=== PATIENT | female | born 1960 | race Caucasian/White ===

== ENCOUNTER → 2024-12-26 11:37 | Outpatient (BNVA) | payer OTHER, SELFPAY | PROVIDERS: Visit Provider Physician Assistant Medical | DX: S80.12XA Contusion of left lower leg, initial encounter (principal); S83.91XA Sprain of unspecified site of right knee, initial encounter; S43.491A Other sprain of right shoulder joint, initial encounter; W01.190A Fall on same level from slipping, tripping and stumbling with subsequent striking against furniture, initial encounter | CPT/HCPCS: 73030; 73564; 99204 ==

== ENCOUNTER → 2024-12-28 10:23 | Outpatient (BNVA) | payer OTHER, SELFPAY | PROVIDERS: Visit Provider Physician Assistant Medical | DX: S80.12XA Contusion of left lower leg, initial encounter (principal); S83.91XA Sprain of unspecified site of right knee, initial encounter; S43.491A Other sprain of right shoulder joint, initial encounter; W01.190A Fall on same level from slipping, tripping and stumbling with subsequent striking against furniture, initial encounter | CPT/HCPCS: 99213 ==

== ENCOUNTER 2025-01-01 16:48 | Emergency (ER) | payer OTHER, SELFPAY ==
--- NOTE | ~2025-01-01 | XR_ITS ---
CLINICAL HISTORY: trauma 2 view left tibia-fibula Comparison: None Findings No fractures or dislocations. No ankle effusion. Mild arthritic change of the ankle and the lateral knee compartment. IMPRESSION: 1. No acute bony abnormality. This document has been electronically signed by: Jerrica Tena MD on 01/01/2025 17:42:19
--- NOTE | ~2025-01-01 | US_ITS ---
CLINICAL HISTORY: pain, swelling Venous duplex ultrasound left lower extremity Comparison: None Findings: The visualized deep veins are fully compressible with normal Doppler color flow and spectral tracings. No popliteal cyst. IMPRESSION: 1. Negative for left lower extremity deep vein thrombosis. This document has been electronically signed by: Jerrica Tena MD on 01/01/2025 17:40:57
[2025-01-01 16:55] VITALS: BP 161/92; PULSE 104; RESP 18; TEMP 36.4; O2SAT 95; BMI 25.2
--- NOTE | 2025-01-01 16:56 | ED.GENADULT ---
HPI - General Adult General Chief complaint: Extremity Injury, Lower Stated complaint: Fall at work Time Seen by Provider: 01/01/25 17:51 Source: patient Mode of arrival: ambulatory Limitations: no limitations History of Present Illness ED Provider: Yanet Lovell PA-C HPI narrative: 64-year-old female presents to the ER for evaluation of left lower leg bruising and pain for the last 6 days after she fell at work and hit it against a book shelf. She reports. Significantly bruised with a central area of redness and firmness. She denies any pain or swelling of her ankle. She has been using ice and elevating her leg. She has been out of work. 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 he is not on any anticoagulation or antiplatelet medications. She denies any numbness or tingling in the leg. MD complaint: Left lower leg bruising and pain Onset (ago): day(s) (6) Location: left and lower extremity Radiation: non-radiation Severity: moderate Quality: aching Pain Consistency: intermittent Relieving factors: cold therapy and immobilization Exacerbating factors: movement and other ( palpation and weight-bearing) Associated symptoms: denies other symptoms Treatments prior to arrival: none Related Data Previous Rx's ?Medication ?Instructions ?Recorded cyclobenzaprine 5 mg tablet 5 mg PO BEDTIME PRN muscle spasm 12/26/24 #20 tabs lorazepam 0.5 mg tablet 0.5 mg PO DAILY PRN procedural 12/28/24 anxiety #3 tabs Allergies Allergy/AdvReac Type Severity Reaction Status Date / Time latex Allergy Intermediate Rash Verified 01/01/25 16:56 Review of Systems Review of Systems: Yes all other systems are reviewed and are negative Physical Exam ED Vital Signs: Vital Signs - 24 hr 01/01/25 16:55 01/01/25 17:26 Temperature 97.5 F 98.3 F Pulse Rate 104 H 82 Respiratory Rate 18 18 Blood Pressure 161/92 H 146/67 H Pulse Oximetry 95 96 Oxygen Delivery Method Room Air Room Air BMI result Body Mass Index 25.2 Appearance: Alert. Oriented X3. No acute distress. HEENT: normal inspection CVS: Normal heart rate and rhythm. Pulses normal. Respiratory: No respiratory distress. Skin: Skin warm and dry. Normal skin color. Normal skin turgor. No rashes. Extremities: left medial lower leg with moderate dark purple ecchymotic area with central erythema and firmness with associated tenderness. Compartments are soft and compressible. Neurovascularly intact distally with 2+ DP and PT pulses. Neuro: Oriented X 3. No motor deficit. No sensory deficit. Course Course Course Narrative: RME, this is a rapid medical exam performed by Marshall Delgado please refer to primary provider for complete H&P- 64 year old female presents for evaluation of left calf pain, bruising, and swelling. She reports falling one week ago and has a large hemaotma to the left calf. She is not on any anti-platelets or anticoagulation. Plan for x-rays and ultrasound. She is able to plantarflex and dorsiflex the left foot without difficulty. Medical Decision Making Medical Decision Making MDM Narrative: 64-year-old woman presenting to the ER for evaluation of left lower leg ecchymosis after falling 6 days ago. Not on anticoagulation. Compartments are soft without any evidence of compartment syndrome on exam. The area seems to be slowly healing with centralized area of more firm tissue in the middle. This is consistent with a resolving hematoma. No evidence of infection at this time. Placed in Moe wrap for compression and support. Supportive care discussed with patient along with return precautions and thinks monitor for at home. Stable for discharge Differential Diagnosis Differential Diagnoses: The differential diagnosis associated with the presentation includes Compartment syndrome, DVT, hematoma, ankle fracture Independent Interpretation I performed an independent interpretation of an: Plain X-Ray and Ultrasound Interpretation: ultrasound with the evidence of DVT X-ray without any distal fibular fracture Radiology Impression Discussion of test interpretation with radiology: I have reviewed the radiologist's reading. Tests considered The following testing was considered but not selected: CT scan of the lower leg considered however low suspicion for a deep abscess Prescription Management I considered prescription management with: Pain Medication and Antibiotic Critical Care Time Critical Care Time Critical Care Time: No Discharge Plan Discharge Clinical Impression: Hematoma of left lower leg Patient Disposition: Home, Self-Care Instructions: Hematoma (ED) Additional Instructions: Your ultrasound was negative for DVT Your x-ray was normal Rest your leg and elevate your it when possible. Recommend MOE wrap for support and compression. Use ice several times per day. Take Motrin and/or Tylenol as needed for pain. Follow up with your doctor as needed. Prescriptions: No Action lorazepam 0.5 mg tablet 0.5 mg PO DAILY MDD 1.5 mg PRN (Reason: procedural anxiety) Qty: 3 0RF Rx Instructions: take 1-2 tablets a half hour before the testing, may take another tablets if needed due to incomplete response after 30-[address] or do safety sensitive duties after taking this medication. cyclobenzaprine 5 mg tablet 5 mg PO BEDTIME PRN (Reason: muscle spasm) Qty: 20 0RF Rx Instructions: Can take a 2nd dose up to 10 mg Referrals: David Chairez MD [Primary Care Provider] - Print Language: Amharic
[2025-01-01 17:26] VITALS: BP 146/67; PULSE 82; RESP 18; TEMP 36.8; O2SAT 96
--- NOTE | 2025-01-01 17:33 | PC.NURSE ---
Patient is a 64 year old female presents for evaluation of sudden onset left calf pain, bruising, and swelling. She reports falling one week ago and has a large hematoma to the left calf. U/S completed. Alert and oriented. Lungs clear bilat. Respirations even and non-labored. Abdomen soft, non-tender with positive bowel sounds. Bruising and swelling noted to medial aspect of her ankle/LE. Good pedal pulse with positive CSM.
--- OUTSIDE RECORDS SUMMARY | 2025-01-01 17:54 | XMS_ITS | Encounter Summary ---
Author Organization [facility] and [facility] Address [address] [place] [phone] Care Team Providers Care Chief Relay Tester Name Role Phone David Chairez MD Primary Care Provider Unavaila ble Encounter Details Date Type Department Care Team (Late st Contact Info) Description 06/09/2019 Scanned Document [facility] Health Information Management [address] [place] [phone] External, Provider Social History Tobacco Use Types Packs/Day Years Used Date Smoking Tobacco: Every Day Smokeless Tobacco: Never Comments Unknown Sex and Gender Information Value Date Recorded Sex Assigned at Not on file Legal Sex Female 11:16 AM EDT Gender Identity Female 05/13/2019 12:15 PM EDT Sexual Orientation Not on file documented as of this encounter Plan of Treatment Not on file documented as of this encounter Visit Diagnoses Not on filedocumented in this encounter Care Teams Chief Relay Tester Relationship Specialty Start Date End Date David Chairez MD PCP - General Internal Medicine 05/13/19 documented as of this encounter
--- OUTSIDE RECORDS SUMMARY | 2025-01-01 17:54 | XMS_ITS | Clinical Summary ---
Author Organization [address] Address [address] [place] [phone] Phone Care Team Providers Care Chief Librarian Extension Department Name Role Phone David Chairez MD Primary Care Provider Unavaila ble Allergies Active Allergy Reactions Criticality Noted Date Comments Onion 05/13/2019 Only to Raw onion. Patient reports sores in mouth Medications albuterol (PROVENTIL HFA;VENTOLIN HFA;PROAIR HFA) 90 mcg/actuation HFA aerosol inhaler Inhale 2 puffs into the lungs every 6 (six) hours as needed for Wheezing. Active hydroCHLOROthiaz damion (MICROZIDE) 12.5 mg capsule Take 12.5 mg by mouth daily. Active traZODone (DESYREL) 150 MG tablet Take 150 mg by mouth nightly. Active multivitamin (THERAGRAN) tablet Take 1 tablet by mouth daily. Active esomeprazole (NEXIUM) 20 MG capsule Take 40 mg by mouth daily before breakfast. Active calcium carbonate (CALTRATE 600) 1500 mg (600 mg calcium) tablet Take 1 tablet by mouth daily. Active glucosamine HCl 1,500 mg Tab Take 1 tablet by mouth daily. Active vitamin E 100 UNIT capsule Take 100 Units by mouth daily. Active aspirin 81 MG EC delayed release tablet Take 81 mg by mouth daily. Active cholecalciferol, vitamin D3, (VITAMIN D3 ORAL) Take 1 tablet by mouth daily. Active nicotine (NICODERM CQ) [address] 1 patch (21 mg total) onto the skin daily. Alternate arms/sites when applying patch. Discard old patch when applying new one 28 patch 1 9 Active polyethylene glycol (MIRALAX) 17 gram packet Take 1 packet (17 g total) by mouth daily as needed for Constipation. Mix in 8 ounces of water, juice, soda, coffee or tea prior to taking. 14 each 2 9 Active Additional Information Patient not taking.Reported on 08/01/2019 acetaminophen (TYLENOL) 325 mg tabletIndication s:pain Take 650 mg by mouth every 8 (eight) hours as needed. Active gabapentin (NEURONTIN) 100 mg capsuleIndicatio ns:Closed fracture of multiple ribs of right side with routine healing, subsequent encounter,Postop erative pain Take 2 capsules (200 mg total) by mouth 2 (two) times daily with breakfast and dinner. 120 each 1 9 Active Additional Information Patient not taking.Reported on 10/10/2019 docusate sodium (COLACE) 100 mg capsuleIndicatio ns:Drug-induced constipation Take 1 capsule (100 mg total) by mouth 2 (two) times daily. 30 capsule 9 Active Additional Information Patient not taking.Reported on 08/01/2019 sulfamethoxazole -trimethoprim (BACTRIM DS;CO-TRIMOXAZOL E DS) 800-160 mg per tablet 0 Active senna-docusate (SENNA-PLUS) 8.6-50 mg tablet Take 1 tablet by mouth daily. 30 tablet 0 Active Additional Information Patient not taking.Reported on 02/08/2020 Active Problems Problem Noted Date Diagnosed Date Clavicle fracture 05/29/2019 Hemothorax on right 05/16/2019 Multiple rib fractures 05/16/2019 Immunizations Name Administration Dates Next Due Influenza, injectable, quadrivalent, preservativ e free 05/16/2019 Social History Tobacco Use Types Packs/Day Years Used Date Smoking Tobacco: Some Days Cigarettes Smokeless Tobacco: Never Tobacco Cessation:Ready to Q uit: No Alcohol Use Standard Drinks/Week Comments Yes 0 (1 standard drink = 0.6 oz pur e alcohol) socially Comments No Sex and Gender Information Value Date Recorded Sex Assigned at Not on file Legal Sex Female 11:16 AM EDT Gender Identity Female 05/13/2019 12:15 PM EDT Sexual Orientation Not on file Last Filed Vital Signs Vital Sign Reading Time Taken Comments Blood Pressure 135/78 03/11/2021 11:47 AM EDT Pulse 85 03/11/2021 11:47 AM EDT Temperature 36.9 ??C (98.4 ??F) 03/11/2021 11:47 AM E DT Respiratory Rate 19 03/11/2021 11:47 AM EDT Oxygen Saturation 97% 03/11/2021 11:47 AM EDT Inhaled Oxygen Concentration - - Weight 65.3 kg (144 lb) 03/11/2021 11:47 AM EDT Height 160 cm (5' 3 ) 02/08/2020 10:09 AM EDT Body Mass Index 25.51 02/08/2020 10:09 AM EDT Plan of Treatment Health Maintenance Due Date Last Done Comments HIV screening 12/21/1972 Hepatitis C screening 12/21/1977 Lipid disorder screening 1999 Colon cancer screening, Colonoscopy 12/21/2004 Pneumococcal Vaccine (50+ years) (2 of 2 - PCV) 01/01/2016 12/31/2014 RSV Immunization (1 - Risk 60-74 years 1-dose series) 2019 Breast cancer screening 04/20/2021 04/20/20 19, 12/11/2016, 09/30/2015, Additional history exists Shingles vaccine (Shingrix) (2 of 2 - Shingrix (RZV) 2 Dose Standard Series) 05/10/2022 03/09/2022 Diabetes screening 06/12/2022 06/12/2019, 1 , 05/28/2019, Additional history exists Covid-19 vaccine series ( season) 2024 12/24/2021, 05/08/2021, 10/21/2020, Additional history exists Osteoporosis screening (bone density) 12/21/2024 Influenza vaccine 04/23/2025 06/19/2022, , 07/10/2020, Additional history exists Tetanus adult (Td q 10,TDAP once) 01/22/2033 01/22/2023, 10/09/2011, 08/23/2001 Pneumococcal Vaccine (2 - 49 years) Discontinued 12/31/2014 Cervical cancer screening Discontinued Meningococcal Vaccine Aged Out No teresa carol eligible based on patient's age to complete this topic Medical Devices Implanted Type Area Cherry Grower Device Identifier Shelf Expiration Date Model / Serial / Lot Plate 8hl Univ Ti Matrixrib - [id number] Implanted:Qt y: 2 on 05/22/2019 by Dhruv Lam MD at [address] Implant Right: Chest Maia DAVILA 04/23/2020 04.501. 9 / / 0 Plate Rt 6+7 Rib 17hl Matrix - [id number] Implanted: by Dhruv Lam MD at [address] (Quantity not on file) Implant Maia DAVILA [id number]. [id number] / / Screw Va Sd Slf-Tpng 2.7mm 20m - [id number] Implanted: by Faisal Mian MD at [address] (Quantity not on file) Implant Right: Clavicle Maia DAVILA [id number] 0 / / Screw Va Sd Slf-Tpng 2.7mm 20m - [id number] Implanted: by Faisal Mina MD at [address] (Quantity not on file) Implant Right: Clavicle Maia DAVILA [id number] 0 / / Screw Va Sd Slf-Tpng 2.7mm 24m - [id number] Implanted: by Faisal Mina MD at [address] (Quantity not on file) Implant Right: Clavicle Maia DAVILA [id number] / / Plate 2.4mm 4hl Lc Dcp - [id number] Implanted: by Faisal Mina MD at [address] (Quantity not on file) Implant Right: Clavicle Maia DAVILA [id number] 249.924 / / Screw Stanislav 2.4x8mm Cruciform - [id number] Implanted: by Faisal Mina MD at [address] (Quantity not on file) Implant Right: Clavicle Maia DAVILA [id number] 201.638 / / Screw Stanislav 2.4x12mm Cruciform - [id number] Implanted: by Faisal Mina MD at [address] (Quantity not on file) Implant Right: Clavicle Maia Maia DAVILA [id number] 201.642 / / Screw Stanislav 2.4x12mm Cruciform - [id number] Implanted: by Faisal Mina MD at [address] (Quantity not on file) Implant Right: Clavicle Maia Maia DAVILA [id number] 201.642 / / Screw Stanislav 2.4x12mm Cruciform - [id number] Implanted: by Faisal Mina MD at [address] (Quantity not on file) Implant Right: Clavignacia Maia DAVILA [id number] 201.642 / / Algrft Formble Cell Matrix 1cc - [id number] Implanted:Qt y: 1 on 01/29/2020 by Faisal Mina MD at [address] Implant LIFENET 05/21/2020 BL-[id number] 01 / [id number] / [id number] Screw Stanislav 3.5x14mm Slf Tap - [id number] Implanted: by Faisal Mina MD at [address] (Quantity not on file) Implant Right: Clavicle Maia DAVILA [id number] 204.814 / / Screw Stanislav 3.5x16mm Slf Tap - [id number] Implanted: by Faisal Mina MD at [address] (Quantity not on file) Implant Right: Clavicle Maia DAVILA [id number] 204.816 / / Screw Stanislav 3.5x16mm Slf Tap - [id number] Implanted: by Faisal Mina MD at [address] (Quantity not on file) Implant Right: Clavicle Maia DAVILA [id number] 204.816 / / Screw Va Sd Slf-Tpng 2.7mm 20m - [id number] Implanted: by Faisal Mina MD at [address] (Quantity not on file) Implant Right: Clavicle Maia DAVILA [id number] 0 / / 1.5mm X 240mm Matrixrib Straight Plate, 24holes, Titanium Implanted:Qt y: 1 on 05/22/2019 by Dhruv Lam MD at [address] 04/23/2020 04.501.09 6 / / 0 8 Mm Locking Screw Implanted:Qt y: 12 on 05/22/2019 by Dhruv Lam MD at [address] 05/22/2020 04.501.20 8.01 / / 9 Mm Locking Screws Implanted:Qt y: 17 on 05/22/2019 by Dhruv Lam MD at [address] 05/22/2020 04.501.20 9.01 / / 10 Mm Locking Screws Implanted:Qt y: 14 on 05/22/2019 by Dhruv Lam MD at [address] 05/22/2020 04.501.21 0.01 / / 11 Mm Locking Screw Implanted:Qt y: 7 on 05/22/2019 by Dhruv Lam MD at [address] 05/22/2020 04.501.21 1.01 / / 2.7mm/3.5mm X 89mm Va-Lcp Lateral Anterior Clavicle Plate, 9 Holes, Stainless Steel Implanted:Qt y: 1 on 01/29/2020 by Faisal Mina MD at [address] Right: Clavicle [id number] 6 / / Explanted Type Area Cherry Grower Device Identifier Shelf Expiration Date Model / Serial / Lot Screw Stanislav 3.5x[address] Ft Hex - [id number] Implanted:03/2020 by Faisal Mina MD (Quantity not on file) Ex[address]:03/[address] (Quantity not on file) Implant Maia DAVILA [id number] 204.818 / / Screw Stanislav 3.5x[address] Ft Hex - [id number] Implanted:03/2020 by Faisal Mina MD (Quantity not on file) Explanted:03/2020 at [facility] (Quantity not on file) Implant J [employer] [id number] 204.818 / / Non Locking Screw Explanted:Qty: 3 on 05/22/2019 by Dhruv Lam MD at [facility] SYNTHES CMF 05/22/2020 04.501.25 0 .01 / / Procedures Procedure Name Priority Date/Time Associated Diagnosis Comments BASIC METABOLIC PANEL STAT 06/12/2019 4:37 AM EDT HM MAMMOGRAPHY Routine 04/20/2019 from Last 3 Months or Most Recently Relevant to Health Maintenance Results * (ABNORMAL) Basic metabolic panel (06/12/2019 4:37 AM EDT) Sodium 141 136 - 144 mmol/L 06/12/2019 5:09 AM EDT [facility] Potassium 4.0 3.3 - 5.1 mmol/L 06/12/2019 5:09 AM EDT [facility] Chloride 101 98 - 107 mmol/L 06/12/2019 5:09 AM EDT [facility] CO2 25 20 - 30 mmol/L 06/12/2019 5:09 AM EDT [facility] Anion Gap 15 7 - 17 06/12/2019 5:09 AM T [facility] Glucose 103(H) 70 - 100 mg/dL 06/12/2019 5:09 AM EDT [facility] BUN 6 6 - 20 mg/dL 06/12/2019 5:09 AM EDT [facility] Creatinine 0.63 0.40 - 1.30 mg/dL 06/12/2019 5:09 AM EDT [facility] Calcium 9.6 8.8 - 10.2 mg/dL 06/12/2019 5:09 AM EDT [facility] BUN/Creatinine Ratio 9.5 8.0 - 23.0 06/12/2019 5:09 AM EDT [facility] eGFR (Afr Amer) >60 >60 mL/min/1.7 3m2 06/12/2019 5:09 AM EDT [facility] Comment: Values under 60mL/min/1.73m2 may indicate CKD if noted for ?? more than 3 months. eGFR is only valid if creatinine is at steady state. eGFR (NON -Jasmine n) >60 >60 mL/min/1.7 3m2 06/12/2019 5:09 AM EDT [facility] Comment: Values under 60mL/min/1.73m2 may indicate CKD if noted for ?? more than 3 months. eGFR is only valid if creatinine is at steady state. Blood Venipuncture / Unknown 06/12/2019 4:37 AM EDT 06/12/2019 4:43 AM EDT Cheyanne Wheeler MD [facility] LAB BLOOD ORDERABLES Martha triana Result [facility] [address] [place] [address] * HM MAMMOGRAPHY (04/20/2019) Anatomical Region Laterality Modality Other us Provider External HEALTH MAINTENANCE Final Resul t from Last 3 Months or Most Recently Relevant to Health Maintenance Insurance [facility] BS BS Advance Directives * Full ACLS (Latest Code Status on File) Date Activated Date Inactivated Comments 05/22/2019 9:31 PM 05/29/2019 5:41 PM * Full ACLS Date Activated Date Inactivated Comments 05/14/2019 1:23 AM 05/22/2019 9:31 PM Care Teams Chief Librarian Extension Department Relationship Specialty Start Date End Date David Chairez MD PCP - General Internal Medicine 05/13/19
--- OUTSIDE RECORDS SUMMARY | 2025-01-01 17:54 | XMS_ITS | Encounter Summary ---
Author Organization [facility] Address [address] [place] [phone] Care Team Providers Care System Developer Associate Manager Name Role Phone David Chairez MD Primary Care Provider Unavaila ble Encounter Details Date Type Department Care Team (Late st Contact Info) Description 12/05/2012 Scanned Document [facility] Health Information Management [address] [place] [phone] External, Provider Social History Tobacco Use Types Packs/Day Years Used Date Smoking Tobacco: Never Assessed Comments Unknown Sex and Gender Information Value Date Recorded Sex Assigned at Not on file Legal Sex Female 11:16 AM EDT Gender Identity Female 05/13/2019 12:15 PM EDT Sexual Orientation Not on file documented as of this encounter Plan of Treatment Not on file documented as of this encounter Procedures Procedure Name Priority Date/Time Associated Diagnosis Comments MAMMOGRAPHY Routine 12/05/2012 documented in this encounter Results * MAMMOGRAPHY (12/05/2012) Anatomical Region Laterality Modality Other us Provider External HEALTH MAINTENANCE Final Resul t documented in this encounter Visit Diagnoses Not on filedocumented in this encounter Care Teams System Developer Associate Manager Relationship Specialty Start Date End Date David Chairez MD PCP - General Internal Medicine 05/13/19 documented as of this encounter
--- OUTSIDE RECORDS SUMMARY | 2025-01-01 17:54 | XMS_ITS | Encounter Summary ---
Author Organization [facility] Address [address] [place] [phone] Care Team Providers Care Fringe Weaver Name Role Phone David Chairez MD Primary Care Provider Unavaila ble Encounter Details Date Type Department Care Team (Late st Contact Info) Description 09/30/2015 Scanned Document [facility] Health Information Management [address] [place] [phone] External, Provider Social History Tobacco Use Types [...] Priority Date/Time Associated Diagnosis Comments MAMMOGRAPHY Routine 09/30/2015 documented in this encounter Results * MAMMOGRAPHY (09/30/2015) Anatomical Region Laterality Modality Other us Provider External HEALTH MAINTENANCE Final Resul t documented in this encounter Visit Diagnoses Not on filedocumented in this encounter Care Teams Fringe Weaver Relationship Specialty Start Date End Date David Chairez MD PCP - General Internal Medicine 05/13/19 documented as of this encounter
--- OUTSIDE RECORDS SUMMARY | 2025-01-01 17:54 | XMS_ITS | Encounter Summary ---
Author Organization [facility] Address [address] [place] [phone] Care Team Providers Care Office Workforce Planner Name Role Phone David Chairez MD Primary Care Provider Unavaila ble Encounter Details Date Type Department Care Team (Late st Contact Info) Description 04/20/2019 Scanned Document [facility] Health Information Management [address] [place] [phone] External, Provider Social History Tobacco Use Types [...] Priority Date/Time Associated Diagnosis Comments MAMMOGRAPHY Routine 04/20/2019 documented in this encounter Results * MAMMOGRAPHY (04/20/2019) Anatomical Region Laterality Modality Other us Provider External HEALTH MAINTENANCE Final Resul t documented in this encounter Visit Diagnoses Not on filedocumented in this encounter Care Teams Office Workforce Planner Relationship Specialty Start Date End Date David Chairez MD PCP - General Internal Medicine 05/13/19 documented as of this encounter
--- OUTSIDE RECORDS SUMMARY | 2025-01-01 17:54 | XMS_ITS | Data Portability ---
Author Organization [facility], [address] Address [address] [place] [address] Care Team Providers Care Work From Home Name Role Phone CLARENCE SKINNER Primary Care Provider Assessment No assessment recorded. Plan of Treatment Reminders Order Date Submit Date Provider Last Modified By Organization Details Last Modified Time Details Appointments None recorded. Lab rapid flu (A+B) 2022 023 [email or web address] [address], [address] [place], [address], 3 15:56:07 rapid SARS CoV 2 Ag, QL IA, respiratory specimen 2022 023 [email or web address] 247 [facility] [address], [address] [place], [address], 3 15:56:07 Referral None recorded. Procedures None recorded. Surgeries None recorded. Imaging None recorded. Medication Orders benzonatate 100 mg capsule 2022 023 [id number], [address] [place], [address], 3 15:56:10 Patient TargetsNo targets recorded. Patient InstructionsNo instructions recorded. Reason for Referral None Reported. Results Created Date Observation Date Name Description Value Unit Range Abnormal Flag Note LastModifiedBy Organization Detail LastModifiedTime 09/30/19 23 09/30/2022 rapid SARS CoV 2 Ag, QL IA, respi rator y speci men Unknown Analyte Normal =Negat madhuri Not Available [address] [place], [address], 09/30/2022 12:02:20 09/30/19 23 09/30/2022 rapid SARS CoV 2 Ag, QL IA, respi rator y speci men Unknown Analyte positi ve Not Available [address] [place], [address], 09/30/2022 12:02:20 09/30/19 23 09/30/2022 rapid flu (A+B) Unknown Analyte Normal = Negati ve Not Available [address] [place], [address], 09/30/2022 12:02:15 09/30/19 23 09/30/2022 rapid flu (A+B) Unknown Analyte Normal = Negati ve Not Available [address] [place] [address], [phone], 09/30/2022 12:02:15 09/30/19 23 09/30/2022 rapid flu (A+B) Unknown Analyte negati ve Not Available [address] [place] [address], [address], 09/30/2022 12:02:15 09/30/19 23 09/30/2022 rapid flu (A+B) Unknown Analyte negati ve Not Available [address] [place] [address], [phone], 09/30/2022 12:02:15 Result Notes None recorded. Problems Name Problem SNOMED Code Status Onset Date Resolution Date Notes Provider Name and Address Organization Details Recorded Time Insomnia 732173944 Active 2022 [facility] 3 11:57:53 Hypertensive disorder 14327007 Active 2022 [facility] 3 11:57:59 Problem Notes None recorded. Procedures Surgical History Date Name Laterality Status Provider Name and Address Organization Details Recorded Time Gastric bypass for obesity completed Jocelynn ALLEN - [facility] 09/30/2022 11:58:25 Rib cartilage graft completed Jocelynnanastasiia Lindcoretta Rogers [facility] 09/30/2022 11:58:30 Hernia Repair completed Jocelynn Ulises ALLEN - [facility] 09/30/2022 11:58:35 procedure on ankle completed Jocelynn Ulises ALLEN - [facility] 09/30/2022 11:58:42 Imaging Results None recorded. Procedure Notes None recorded. Medical Equipment None Reported. Allergies No known drug allergies Medications Name Sig Start Date Stop Date Status Note LastModified by Organization Details LastModified Time benzonatate 100 mg capsule Take 1 capsule 3 times a day by oral route. 2022 active Not Available Not Available Not Avai lable hydrochlorothia zide active Not Available Not Available Not Available trazodone active Not Available Not Ame ilable Not Available Vitals Date Recorded Body height Body mass index (BMI) Body weight Pain severity - 0-10 verbal numeric rating [Score] - Reported Body temperature Oxygen saturation Oxygen saturation in Arterial blood by Pulse oximetry Heart rate Respiratory rate Systolic blood pressure Diastolic blood pressure Provider Name and Address Organization Details Last Updated DateTime 3 160.02 cm 25.7 kg/m2 46125.8 9 g 2 98.8 [degF] 98 % 98 % 92 /min 18 /min 115 mm[Hg] 78 mm[Hg] [facility]elynn Ulises [facility] 12:00:22 Social History Question Answer Notes LastModified by [employer] Details LastModified Time Tobacco Smoking Status Current Every Day Smoker Jocelynnanastasiia Lindcoretta liu PA [facility] 09/30/2022 12:02:40 How Much Tobacco Do You Smoke? 0.5 PPD [email or web address] Information not available 09/30/2022 Have You Recently Traveled Abroad? No Information not available 09/30/2022 Sex: Unknown Functional Status Question Answer Note LastModified by [employer] Details LastModified Time Do you use any illicit or recreational drugs? No [email or web address] Information not available 09/30/2022 Do you or have you ever used any other forms of tobacco or nicotine? No Information not available 09/30/2022 What is your level of alcohol consumption? None [email or web address] Information not available 09/30/2022 Mental Status None recorded. Family History Nothing Reported. Medical History No medical history recorded. Gynecological HistoryNo gynecological history recorded. Obstetrics History GPAL:G 0 P 0 0 0 0 Past Encounters Encounter ID Performer Location Encounter Start Date Encounter Closed Date Diagnosis/Indication Diagnosis SNOMED-CT Code Diagnosis ICD10 Code Diagnosis Note [id number] [facility] [place] [address] 11/01/2017 18:36:19 11/01/2017 19:29:04 [id number] [place] [address] 01/06/2019 12:16:31 01/06/2019 14:17:26 [id number] SHANDRA FARIAS MD [address] [place] [address] 09/30/2022 11:53:24 09/30/2022 16:04:07 COVID-19 692197001 U07.1 CoughBlack Elderberry Syrup:1-2 tsp 2-3 times a day for 5 days as needed for coughing.S ambucol Black Elderberry Original Syrup (available at [employer] )Shaila Herbs Black Elderberry Syrup, 5.4-Ounce Bottle (available at [employer] or [employer]) Use a cool mist humidifier in the room that you sleep to add moisture to the air, which should soothe the airways and help loosen any mucus that may be present. Acute bronchospasm 04430 [id number] J98.01 Use your Albuterol inhaler (2 puffs) with the Aerochambe r 3 times a day for 7 days as directed during the visit today. Health Concerns Section Related Observation LastModified by Organization Detai ls LastModified Time None Recorded Concern Status LastModified by Organization Details LastModified Time None Recorded Advance Directives Directive None Recorded Payers Insurance Date Sequence Insurance Name Policy Number Policy Rain Covered Member ID Rain Member ID Guarantor Name 09/30/2022 1 [place] [facility] [place] [place] [id number] Patricia Sinha [id number] Patricia Sinha Notes Date Note Type Note Provider Name and Address Organization Details Recorded Time 09/30/2022 text/html COVID-19 SymptomsReported bypatient.COVID-19 Signs and Symptomscough same Quality:dry cough;wheezy cough Severity:moderate Duration:symptoms lasting 3 days Associated Symptoms:wheezing;body aches pt c/o chest congestion, chills, cough, right sided nasal congestion x2 days SHANDRA FARIAS MD [address] [place], [address], [place] - [facility] 09/30/2022 16:11:07 OBGyn Episode No OBEpisode recorded.
--- OUTSIDE RECORDS SUMMARY | 2025-01-01 17:54 | XMS_ITS | Encounter Summary ---
Author Organization [facility] and [facility] Address [address] [place] [phone] Care Team Providers Care Switch Foreman Name Role Phone David Chairez MD Primary Care Provider Unavaila ble Encounter Details Date Type Department Care Team (Late st Contact Info) Description 06/08/2019 Scanned Document [facility] Health Information Management [address] [place] [phone] External, Provider Social History Tobacco Use Types [...] on filedocumented in this encounter Care Teams Switch Foreman Relationship Specialty Start Date End Date David Chairez MD PCP - General Internal Medicine 05/13/19 documented as of this encounter
--- OUTSIDE RECORDS SUMMARY | 2025-01-01 17:54 | XMS_ITS | Encounter Summary ---
Author Organization [facility] and [facility] Address [address] [place] [phone] Care Team Providers Care Leak Gang Supervisor Name Role Phone David Chairez MD Primary Care Provider Unavaila ble Encounter Details Date Type Department Care Team (Late st Contact Info) Description 05/29/2019 Scanned Document [facility] Health Information Management [address] [place] [phone] External, Provider Social History Tobacco Use Types [...] on filedocumented in this encounter Care Teams Leak Gang Supervisor Relationship Specialty Start Date End Date David Chairez MD PCP - General Internal Medicine 05/13/19 documented as of this encounter
--- OUTSIDE RECORDS SUMMARY | 2025-01-01 17:54 | XMS_ITS | Encounter Summary ---
Author Organization [facility] and [facility] Address [address] [place] [phone] Care Team Providers Care Key Account Coordinator Name Role Phone David Chairez MD Primary Care Provider Unavaila ble Encounter Details Date Type Department Care Team (Late st Contact Info) Description 12/11/2016 Scanned Document [facility] Health Information Management [address] [place] [phone] External, Provider Social History Tobacco Use Types [...] Priority Date/Time Associated Diagnosis Comments MAMMOGRAPHY Routine 12/11/2016 documented in this encounter Results * MAMMOGRAPHY (12/11/2016) Anatomical Region Laterality Modality Other us Provider External HEALTH MAINTENANCE Final Resul t documented in this encounter Visit Diagnoses Not on filedocumented in this encounter Care Teams Key Account Coordinator Relationship Specialty Start Date End Date David Chairez MD PCP - General Internal Medicine 05/13/19 documented as of this encounter
--- OUTSIDE RECORDS SUMMARY | 2025-01-01 17:54 | XMS_ITS | Encounter Summary ---
Author Organization [facility] and [facility] Address [address] [place] [phone] Care Team Providers Care Quill Collector Name Role Phone David Chairez MD Primary Care Provider Unavaila ble Encounter Details Date Type Department Care Team (Late st Contact Info) Description 02/03/2011 Scanned Document [facility] Health Information Management [address] [place] [phone] External, Provider Social History Tobacco Use Types [...] Priority Date/Time Associated Diagnosis Comments MAMMOGRAPHY Routine 02/03/2011 documented in this encounter Results * MAMMOGRAPHY (02/03/2011) Anatomical Region Laterality Modality Other us Provider External HEALTH MAINTENANCE Final Resul t documented in this encounter Visit Diagnoses Not on filedocumented in this encounter Care Teams Quill Collector Relationship Specialty Start Date End Date David Chairez MD PCP - General Internal Medicine 05/13/19 documented as of this encounter
--- OUTSIDE RECORDS SUMMARY | 2025-01-01 17:54 | XMS_ITS | Encounter Summary ---
Author Organization [facility] and [facility] Address [address] [place] [phone] Care Team Providers Care Grading Clerk Name Role Phone David Chairez MD Primary Care Provider Unavaila ble Encounter Details Date Type Department Care Team (Late st Contact Info) Description 05/27/2019 Scanned Document [facility] Health Information Management [address] [place] [phone] External, Provider Social History Tobacco Use Types [...] on filedocumented in this encounter Care Teams Grading Clerk Relationship Specialty Start Date End Date David Chairez MD PCP - General Internal Medicine 05/13/19 documented as of this encounter
--- OUTSIDE RECORDS SUMMARY | 2025-01-01 17:55 | XMS_ITS | Encounter Summary ---
Author Organization [facility] and [facility] Address [address] [place] [phone] Care Team Providers Care Bartender Name Role Phone David Chairez MD Primary Care Provider Unavaila ble Encounter Details Date Type Department Care Team (Late st Contact Info) Description 07/19/2019 Scanned Document [facility] Health Information Management [address] [place] [phone] External, Provider Social History Tobacco Use Types Packs/Day Years Used Date Smoking Tobacco: Every Day Smokeless Tobacco: Never Comments No Sex and Gender Information Value Date Recorded Sex Assigned at Not on file Legal Sex Female 11:16 AM EDT Gender Identity Female 05/13/2019 12:15 PM EDT Sexual Orientation Not on file documented as of this encounter Plan of Treatment Not on file documented as of this encounter Visit Diagnoses Not on filedocumented in this encounter Care Teams Bartender Relationship Specialty Start Date End Date David Chairez MD PCP - General Internal Medicine 05/13/19 documented as of this encounter
--- OUTSIDE RECORDS SUMMARY | 2025-01-01 17:55 | XMS_ITS | Encounter Summary ---
Author Organization [facility] and [facility] Address [address] [place] [phone] Care Team Providers Care Rodding Anode Worker Name Role Phone David Chairez MD Primary Care Provider Unavaila ble Encounter Details Date Type Department Care Team (Late st Contact Info) Description 06/20/2019 Scanned Document [facility] Health Information Management [address] [place] [phone] External, Provider Social History Tobacco Use Types [...] on filedocumented in this encounter Care Teams Rodding Anode Worker Relationship Specialty Start Date End Date David Chairez MD PCP - General Internal Medicine 05/13/19 documented as of this encounter
--- OUTSIDE RECORDS SUMMARY | 2025-01-01 17:55 | XMS_ITS | Encounter Summary ---
Author Organization [facility] and [facility] Address [address] [place] [phone] Care Team Providers Care Senior Ui Developer Name Role Phone David Chairez MD Primary Care Provider Anuma ble Encounter Details Date Type Department Care Team (Late st Contact Info) Description 02/28/2020 Scanned Document [facility] Health Information Management [address] [place] [phone] External, Provider Social History Tobacco Use Types Packs/Day Years Used Date Smoking Tobacco: Some Days Cigarettes Smokeless Tobacco: Never Alcohol Use Standard Drinks/Week Comments Yes 0 (1 standard drink = 0.6 oz pur e alcohol) socially Comments No Sex and Gender Information Value Date Recorded Sex Assigned at Not on file Legal Sex Female 11:16 AM EDT Gender Identity Female 05/13/2019 12:15 PM EDT Sexual Orientation Not on file COVID-19 Exposure Response Date Recorded In the last month, have you been in contact with someone who was confirmed or suspected to have Coronavirus / COVID-19? No / Unsure 02/08/2020 9:57 AM EDT documented as of this encounter Plan of Treatment Not on file documented as of this encounter Procedures Procedure Name Priority Date/Time Associated Diagnosis Comments CT RESULT SCAN Routine 02/28/2020 documented in this encounter Results * CT Result Scan (02/28/2020) us Provider External IMG SCAN REPORTS Final Result documented in this encounter Visit Diagnoses Not on filedocumented in this encounter Care Teams Senior Ui Developer Relationship Specialty Start Date End Date David Chairez MD PCP - General Internal Medicine 05/13/19 documented as of this encounter
[2025-01-01 18:14] VITALS: BP 146/67; PULSE 82; RESP 18; TEMP 36.8; O2SAT 96
== END 2025-01-01 18:15 | disposition home or self-care (01) ==
PROVIDERS: Emergency Provider Emergency Medicine; PCP Internal Medicine
DX: S80.12XA Contusion of left lower leg, initial encounter (principal); W01.190A Fall on same level from slipping, tripping and stumbling with subsequent striking against furniture, initial encounter; M79.662 Pain in left lower leg; Y93.89 Activity, other specified; Y92.213 High school as the place of occurrence of the external cause; Y99.0 Civilian activity done for income or pay
CPT/HCPCS: 73590; 93971; 99284

== ENCOUNTER → 2025-01-01 16:56 | Outpatient (BNV) | payer OTHER, SELFPAY | PROVIDERS: Emergency Provider Emergency Medicine; PCP Internal Medicine; Visit Provider Radiology Diagnostic Radiology | DX: M23.321 Other meniscus derangements, posterior horn of medial meniscus, right knee (principal); M17.11 Unilateral primary osteoarthritis, right knee | CPT/HCPCS: 73590; 73721; 93971 ==

== ENCOUNTER 2025-01-01 19:16 | Outpatient (REF) | payer OTHER, SELFPAY ==
--- NOTE | ~2025-01-01 | MR_ITS ---
EXAMINATION: MRI RIGHT KNEE WITHOUT CONTRAST HISTORY: EDEMA LAXITY W/STRESS AND LATERAL JOINT COMPARISON: Correlation is made with plain films of the right knee dated 12/26/2024. TECHNIQUE: Coronal T1 and fat-suppressed proton density, sagittal proton density and fat-suppressed proton density, and axial fat suppressed T2 weighted MR images of the right knee were obtained. FINDINGS: Bone marrow: Bone marrow signal intensity is normal. Joint effusion: There is no joint effusion. Davis's cyst: There is no Davis's cyst. Articular cartilage: There is mild to moderate osteoarthritis of the medial compartment with cartilage irregularity and osteophyte formation. There is mild to moderate thinning of the patellar cartilage. The cartilage of the lateral compartment is preserved. Muscles/soft tissues: The visualized muscles demonstrate normal signal intensity. Anterior cruciate ligament: Intact Posterior cruciate ligament: Intact Medial collateral ligament: Intact Lateral collateral ligament: Intact Medial meniscus: There is predominantly horizontally oriented linear increased T2 signal intensity within the posterior horn of the medial meniscus. This contacts the inferior joint surface, consistent with a tear which may be degenerative in nature. There is a 1.1 x 0.5 cm cyst adjacent to the posterior horn of the medial meniscus which likely represents a meniscal cyst. The anterior horn of the medial meniscus is intact. Lateral meniscus: There is ill-defined increased signal intensity within the posterior horn of the lateral meniscus. This does not contact the inferior joint surface, consistent with degeneration. No tear is seen. Flexor mechanism: The popliteus, gastrocnemius, and hamstring tendons are intact. Quadriceps tendon: Intact Patellar tendon: Intact Patellar retinacula: Intact MR/MR knee RT wo con IMPRESSION: 1. 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 2. Horizontal tear of the posterior horn of the medial meniscus with an associated meniscal cyst, likely degenerative in nature. 3. Degenerative signal in the posterior horn of the lateral meniscus. Electronically signed by: Erik Burton MD 01/02/2025 07:49 AM EDT
== END 2025-01-01 19:17 | disposition home or self-care (01) ==
LOC: HO.MRI 19:16
PROVIDERS: PCP Internal Medicine; Visit Provider Internal Medicine
DX: M25.461 Effusion, right knee (principal); M23.51 Chronic instability of knee, right knee
CPT/HCPCS: 73721

== ENCOUNTER → 2025-01-04 11:20 | Outpatient (BNVA) | payer OTHER, SELFPAY | PROVIDERS: PCP Internal Medicine; Visit Provider Physician Assistant Medical | DX: S80.12XA Contusion of left lower leg, initial encounter (principal); L03.116 Cellulitis of left lower limb; S83.91XA Sprain of unspecified site of right knee, initial encounter; S83.206A Unspecified tear of unspecified meniscus, current injury, right knee, initial encounter; S43.491A Other sprain of right shoulder joint, initial encounter; W01.190A Fall on same level from slipping, tripping and stumbling with subsequent striking against furniture, initial encounter | CPT/HCPCS: 99213 ==